=== PATIENT | female | born 1980 | race African-American/Black ===

== ENCOUNTER 2017-11-03 13:26 | Emergency (ER) | payer MEDICAID ==
[~2017-11-03] VITALS: Ht 182.9 cm; Wt 128.8 kg
[~2017-11-03 13:26] MED LIST: ALBUTEROL SULF8.5 GM INH; AUGMENTIN 875-1 EAC1 ORAL; AZITHROMYCIN250 MG ORAL; CIPRODEX OTIC7.5 M1 RIGHT EAR; IBUPROFEN800 MG ORAL; MEDROL DOSEPAK4 MG ORAL; PERCOCET 5-3251 EACH ORAL; PREDNISONE50 MG ORAL; PROMETHAZINE-C118 M1 ORAL; PROMETHAZINE-D118 ML ORAL; SINUS 12 HOUR120 MG PO
[2017-11-03] MEDS ORDERED: Ipratropium 0.02% Inh Soln 2.5ml UD HHN ONE (13:45)
[2017-11-03] MEDS: Albuterol ud Inhalation HHN SCH ×2 (14:34→14:35)
--- NOTE | 2017-11-03 14:41 | Emergency Room Report ---
History of Present Illness General Chief Complaint: Upper Respiratory Illness Present Illness HPI 37 YO presents to the ED c/o cough and moderate wheezing x 2 days, Pt. has a hx of asthma, and inhaler treatments at home are not helping. Patient denies fevers , chills she reports increased mucus production, nasal congestion and runny nose. Both Children are ill contacts. Denies high fevers, lethargy, neck stiffness, irritability, dehydration, N/V/D. Patient has a history of right- sided neck mass that has been evaluated and is benign. Patient denies sore throat. Denies Cp, Palpitations, LOC, AMS, seizures, paresthesias, or changes in Hearing or vision, no Sudden severe RODRIGUEZ Allergies: Coded Allergies: HYDROCODONE (Verified Allergy, Mild, 06/11/14) Patient stated "I get nauseated". ACETAMINOPHEN (Verified Allergy, Unknown, Nausea, 06/11/14) Patient denied acetaminophen allergic reaction Patient History Past Medical History: see triage record, asthma Past Surgical History: none Pertinent Family History: none Now: No Immunizations: UTD Reviewed Nursing Documentation: PMH: Agreed, PSxH: Agreed Nursing Documentation-PMH Hx Cardiac Problems: No Hx Asthma: Yes Hx Cancer: No - biopsy right neck mass 5 years ago benign Hx Gastrointestinal Problems: Yes - Nausea/vomiting/gall stones Hx Neurological Problems: No Review of Systems All Other Systems: negative except mentioned in HPI Physical Exam Vital Signs Date Time Temp Pulse Resp B/P (MAP) Pulse Ox O2 Delivery O2 Flow Rate FiO2 11/03/17 13:27 98.2 107 20 137/83 99 Room Air Sp02 EP Interpretation: reviewed, normal General Appearance: alert, GCS 15, non-toxic, mild distress Head: normocephalic, atraumatic Eyes: bilateral eye normal inspection, bilateral eye PERRL ENT: hearing grossly normal, normal voice, other Neck: full range of motion, no meningismus, no bony tend, other - right sided mass/goiter, no stridor Respiratory: rhonchi, speaking full sentences, wheezing, expiration, inspiration Cardiovascular #1: regular rate, rhythm, no edema Rectal: deferred Genitourinary: normal inspection Musculoskeletal: back normal, gait/station normal, normal range of motion, non- tender Neurologic: alert, oriented x3, responsive, motor strength/tone normal, sensory intact, speech normal, grossly normal Psychiatric: judgement/insight normal Skin: normal color, no rash, warm/dry, well hydrated Lymphatic: no adenopathy Medical Decision Making PA Attestation Dr. Lowry is my supervising Physician whom patient management has been discussed with. Diagnostic Impression: Primary Impression: Acute bronchitis with asthma with acute exacerbation ER Course 37 YO presents to the ED c/o cough and moderate wheezing x 2 days, Pt. has a hx of asthma, and inhaler treatments at home are not helping. Patient denies fevers , chills she reports increased mucus production, nasal congestion and runny nose. Both Children are ill contacts. Denies high fevers, lethargy, neck stiffness, irritability, dehydration, N/V/D. Patient has a history of right- sided neck mass that has been evaluated and is benign. Patient denies sore throat. Denies Cp, Palpitations, LOC, AMS, seizures, paresthesias, or changes in Hearing or vision, no Sudden severe RODRIGUEZ Ddx considered but are not limited to asthma exacerbation, CHF, URI, pneumonia, PE, strep pharyngitis, meningitis. Vital signs: Pt. is afebrile, VS are WNL H&PE are most consistent with URI, asthma exacerbation in the presence of acute URI- viral ORDERS: none required at this time, the diagnosis is clinical ED INTERVENTIONS: -DuoNebs- nebulized treatment. -prednisone 60mg PO - re-examination post nebulized treatment lungs are CTA bilaterally. DISCHARGE: At this time pt. is stable for d/c to home. Will provide printed patient care instructions, and any necessary prescriptions. Care plan and follow up instructions have been discussed with the patient prior to discharge. Chest X-Ray Diagnostic Results Chest X-Ray Diagnostic Results : Chest X-Ray Ordered: Yes # of Views/Limited/Complete: 1 View Indication: Shortness of Breath EP Interpretation: Yes PA Xray: Interpretation reviewed, by supervising MD, and agrees with findings. Interpretation: no consolidation, no effusion, no pneumothorax, no acute cardiopulmonary disease Impression: No acute disease Electronically Signed by: Altagracia Rain PA-C Last Vital Signs Date Time Temp Pulse Resp B/P (MAP) Pulse Ox O2 Delivery O2 Flow Rate FiO2 11/03/17 13:39 107 24 Room Air 11/03/17 13:27 98.2 137/83 99 Disposition: HOME, SELF-CARE Condition: Stable Scripts Prednisone* (PREDNISONE*) 20 Mg Tablet 40 MG ORAL DAILY for 5 Days, #10 TAB Prov: Altagracia Rain 11/03/17 Albuterol Sulfate* (ALBUTEROL SULFATE MDI*) 8.5 Gm Hfa.aer.ad 2 PUFF INH Q4H, #1 INH 2 Refills Prov: Altagracia Rain 11/03/17 Albuterol Sulfate* (ALBUTEROL SULFATE HHN*) 2.5 Mg/3 Ml Vial.neb 3 ML INH Q4H Y for Shortness of Breath, #30 EA Prov: Altagracia Rain 11/03/17 Guaifenesin (Guaifenesin) 1,200 Mg Tab.er.12h 1200 MG PO BID, #20 TAB Prov: Altagracia Rain 11/03/17 Codeine/Promethazine Hcl* (PROMETHAZINE-CODEINE SYRUP*) 118 Ml Syrup 5 ML ORAL Q6H Y for For Cough, #118 ML 0 Refills Prov: Altagracia Rain 11/03/17 Referrals: NOT CHOSEN [facility]/,REFERRING (PCP) Departure Forms: Return to Work Return to Work Date: Nov 04, 2017 Work Restrictions: None Return to Full Activity: Nov 04, 2017 Patient Instructions: Acute Bronchitis, Asthma, Acute Bronchospasm Additional Instructions: Take medications as directed. Follow up with a Primary Care Provider in 3-5 days, even if your symptoms have resolved. --Please review list of primary care clinics, if you do not already have a primary care provider Return sooner to ED if new symptoms occur, or current symptoms become worse. Do not drink alcohol, drive, or operate heavy machinery while taking cough syrup as this may cause drowsiness. - Please note that this Emergency Department Report was dictated using [employer] home healthcare technology software, occasionally this can lead to erroneous entry secondary to interpretation by the dictation equipment. Altagracia Rain Nov 03, 2017 14:41
--- NOTE | 2017-11-03 14:43 | Diagnostic Imaging Report ---
Indication: Cough Technique: XRAY Chest 1v Comparison: None Findings: Heart size and mediastinal contours are within normal limits given technique. There is no focal consolidation, pneumothorax or pleural effusion. Osseous structures demonstrate no acute abnormality. Impression: No radiographic evidence of acute cardiopulmonary disease. Specifically, no focal airspace consolidation.
[2017-11-03] MEDS ORDERED: PROMETHAZINE-C118 M1 ORAL (14:44)
[2017-11-03] MEDS ORDERED: GUAIFENESIN1200 MG PO (14:44)
[2017-11-03] MEDS ORDERED: PREDNISONE20 MG ORAL (14:44)
[2017-11-03] MEDS ORDERED: ALBUTEROL SULF8.5 GM INH (14:44)
[2017-11-03] MEDS ORDERED: ALBUTEROL2.5 MG/3 M INH (14:44)
[2017-11-03 15:09] VITALS: BP 129/81
[2017-11-03 15:14] VITALS: BP 129/81
== END 2017-11-03 15:14 | disposition home or self-care (01) ==
LOC: EMR 13:50
DX: J20.9 Acute bronchitis, unspecified (principal); J45.901 Unspecified asthma with (acute) exacerbation; Z88.6 Allergy status to analgesic agent
CPT/HCPCS: 71045; 94640; 94664; 99284; J7512

== ENCOUNTER 2018-12-02 23:29 | Emergency (ER) | payer MEDICAID ==
[~2018-12-02] VITALS: Ht 182.9 cm; Wt 127.0 kg
[~2018-12-02 23:29] MED LIST changes: +ALBUTEROL2.5 MG/3 M INH; +GUAIFENESIN1200 MG PO; +PREDNISONE20 MG ORAL
--- NOTE | 2018-12-02 23:40 | NUR ---
ED Nurse Note: RECIEVED PT ON [facility] AWAKE, ALERT AND ORIENTED X 4, PT FROM HOME WITH C/O COUGH AND CONGESTION WITH WHEEZINF FOR PAST 4 DAYS, PT HAS GOITER AND C/O PAIN 9/10 TO RIGHT NECK WHICH IS VERY LARGE IN SIZE, PT DENIES CP, DIARRHEA OR VOMITING, PT ASSISTED TO GOWNING, URINE SAMPLE AND CARDIAC MONITORING, WILL RESUME CARE ORDERED BY MD.
[2018-12-03 00:30] VITALS: BP 113/83
--- NOTE | 2018-12-03 00:44 | NUR ---
ED Nurse Note: PT CONTINUES TO REST IN BED QUIETLY, AWAKE AND ALERT, PT C/O PAIN INCREASING, PT WAITING TO BE SEEN BY MD, INFORMED MD OF PT PAIN LEVEL.
--- NOTE | 2018-12-03 00:59 | Emergency Room Report ---
History of Present Illness General Chief Complaint: Upper Respiratory Illness Source: Patient Present Illness HPI Patient presents with upper respiratory symptoms for one week. She also has right ear pain. She has had mild fevers. There is no vomiting or diarrhea. She has some chest pain and has a history of asthma. She took a nebulized treatment yesterday and she felt it made her worse. She denies dysuria. Ear pain is rated 4/10 and radiates somewhat up to her head. Aching. She is a sore throat. There is no productive cough. No leg pain or edema. Last menstrual period was November 11 and normal. Patient has a goiter. It's worse on the right-hand side. This been evaluated with biopsy and ultrasound 5 years ago is not on medication. Partial hearing loss left ear. History of gallstones. She denies abdominal pain at this time. Allergies: Coded Allergies: HYDROCODONE (Verified Allergy, Mild, 06/11/14) Patient stated "I get nauseated". ACETAMINOPHEN (Verified Allergy, Unknown, Nausea, 06/11/14) Patient denied acetaminophen allergic reaction Patient History Past Medical History: see triage record Social History: Denies: smoking Social History Narrative Caregiver Last Menstrual Period: 11/11/2018 Now: No Reviewed Nursing Documentation: PMH: Agreed; PSxH: Agreed Nursing Documentation-PMH Past Medical History: No History, Except For Hx Cardiac Problems: No Hx Asthma: Yes Hx Cancer: No - biopsy right neck mass 5 years ago benign Hx Gastrointestinal Problems: Yes - Nausea/vomiting/gall stones Hx Neurological Problems: No Review of Systems All Other Systems: negative except mentioned in HPI Physical Exam Vital Signs Date Time Temp Pulse Resp B/P (MAP) Pulse Ox O2 Delivery O2 Flow Rate FiO2 12/02/18 23:34 97.9 103 26 138/83 96 Room Air Sp02 EP Interpretation: reviewed, normal General Appearance: well appearing, no apparent distress, GCS 15 Head: normocephalic, atraumatic Eyes: bilateral eye normal inspection, bilateral eye PERRL ENT: moist mucus membranes, pharyngeal erythema, other - R TM with erythema Neck: full range of motion, thyromegaly - Very large goiter extending to the right side of her neck Respiratory: wheezing, expiration Cardiovascular #1: regular rate, rhythm Cardiovascular #2: 2+ radial (R) Gastrointestinal: normal inspection, normal bowel sounds, non tender, no mass, non-distended, overweight Genitourinary: no CVA tenderness Musculoskeletal: back normal, gait/station normal, normal range of motion, no calf tenderness Neurologic: alert, oriented x3, grossly normal Psychiatric: mood/affect normal Skin: normal inspection, warm/dry Medical Decision Making Diagnostic Impression: Primary Impression: Otitis media Qualified Codes: H66.001 - Acute suppurative otitis media without spontaneous rupture of ear drum, right ear Additional Impressions: Asthma exacerbation Qualified Codes: J45.21 - Mild intermittent asthma with (acute) exacerbation Goiter UTI (urinary tract infection) Qualified Codes: N30.00 - Acute cystitis without hematuria ER Course Patient presents with upper respiratory symptoms and ear pain. Differential includes otitis media, bronchitis, asthma exacerbation, influenza amongst others. She received a flu shot and influenza is less likely however a flu swab is obtained. She will be evaluated with urinalysis. Based on her exam chest x-ray and lab evaluation not indicated. She will be treated with breathing treatments and prednisone. Also antibiotics are indicated for the otitis media. Influenza swab negative. Urinalysis reveals pyuria. Patient improved with breathing treatments. Azithromycin was given for the otitis media. However the patient is given Levaquin to cover both urinary tract infection and otitis media. Treatment plan was discussed with the patient. She is stable for outpatient observation and treatment Laboratory Tests Test 12/03/18 00:30 Urine Color Yellow Urine Appearance Slightly cloudy Urine pH 5 (4.5-8.0) Urine Specific [place] 1.020 (1.005-1.035) Urine Protein 1+ (NEGATIVE) H Urine Glucose (UA) Negative (NEGATIVE) Urine Ketones Negative (NEGATIVE) Urine Blood 1+ (NEGATIVE) H Urine Nitrite Negative (NEGATIVE) Urine Bilirubin Negative (NEGATIVE) Urine Urobilinogen 1 MG/DL (0.0-1.0) H Urine Leukocyte Esterase 3+ (NEGATIVE) H Urine RBC 20-30 /HPF (0 - 2) H Urine WBC 10-15 /HPF (0 - 2) H Urine Squamous Epithelial Cells Moderate /LPF (NONE/OCC) H Urine Bacteria Many /HPF (NONE) H Urine HCG, Qualitative Negative (NEGATIVE) Microbiology Date/Time Source Procedure Growth Status 12/03/18 01:00 Nasal Nares Influenza Types A,B Antigen (IJEOMA) - Final Complete Rhythm Strip Diag. Results EP Interpretation: yes Rhythm: NSR, no PVC's, no ectopy Last Vital Signs Date Time Temp Pulse Resp B/P (MAP) Pulse Ox O2 Delivery O2 Flow Rate FiO2 12/03/18 03:58 98.4 90 18 126/69 100 Room Air 21 Status: improved Disposition: HOME, SELF-CARE Condition: Improved Scripts Guaifenesin/Codeine Phos* (ROBITUSSIN AC*) 118 Ml Liquid 5 ML ORAL Q6H PRN for For Cough, #90 ML 0 Refills Prov: Sae Zarate MD 12/03/18 Prednisone* (PREDNISONE*) 20 Mg Tablet 40 MG ORAL DAILY, #10 TAB Prov: Sae Zarate MD 12/03/18 Levofloxacin* (LEVAQUIN*) 500 Mg Tablet 500 MG ORAL DAILY, #7 TAB Prov: Sae Zarate MD 12/03/18 Referrals: NOT CHOSEN SHAHID/,REFERRING (PCP) Sae Zarate MD Dec 03, 2018 00:59
[2018-12-03] MEDS ORDERED: Ipratropium 0.02% Inh Soln 2.5ml UD HHN ONE (01:00)
[2018-12-03] MEDS ORDERED: guaiFENesin w/Codeine 5ml Liq ud ORAL PRN (01:00)
[2018-12-03] MEDS ORDERED: Azithromycin 250mg tab PO ONE (01:00)
[2018-12-03] MEDS ORDERED: Albuterol ud Inhalation HHN ONE (01:00)
[2018-12-03 01:38] LABS: APPEARANCE,URINE SLIGHTLY CLOUDY; BILIRUBIN, URINE NEGATIVE (NEGATIVE); GLUCOSE, URINE (UA) NEGATIVE (NEGATIVE); KETONES,URINE NEGATIVE (NEGATIVE); LEUKOCYTE ESTERASE ,URINE 3+ (NEGATIVE); NITRITE,URINE NEGATIVE (NEGATIVE); PH,URINE 5 (4.5-8.0); PROTEIN,URINE 1+ (NEGATIVE); UROBILINOGEN,URINE 1 MG/DL (0.0-1.0)
[2018-12-03 01:40] LABS: COLOR,URINE YELLOW
[2018-12-03 02:30] VITALS: BP 121/77
[2018-12-03] MEDS ORDERED: LEVAQUIN500 MG ORAL (03:10)
[2018-12-03] MEDS ORDERED: GUAIFENESIN-CO118 M1 ORAL (03:10)
[2018-12-03] MEDS ORDERED: PREDNISONE20 MG ORAL (03:10)
[2018-12-03] MEDS ORDERED: Levofloxacin 500mg tab ORAL ONE (03:15)
[2018-12-03 03:30] VITALS: BP 126/69
--- NOTE | 2018-12-03 03:35 | NUR ---
ED Nurse Note: PT GIVEN ORAL ANTIBIOTIC, NO S/S OF ADVERSE REACTION NOTED, PT TOLERATED WELL, BEING D/C TO HOME, GIVEN F/U INFO,A FTER CARE INSTRUCTIONS AND RE-VERBALIZES PROPER MEDICATION ADMINISTRATION, PT IS AMBULATORY, NO CP, ARMBAND REMOVED, NAD NOTED DURING D/C TO HOME.
[2018-12-03 03:58] VITALS: BP 126/69
== END 2018-12-03 03:59 | disposition home or self-care (01) ==
LOC: EMR 23:50
DX: H66.91 Otitis media, unspecified, right ear (principal); J45.901 Unspecified asthma with (acute) exacerbation; N39.0 Urinary tract infection, site not specified; E04.9 Nontoxic goiter, unspecified; Z88.6 Allergy status to analgesic agent; Z88.5 Allergy status to narcotic agent
CPT/HCPCS: 81003; 81025; 86710; 87086; 94640; 94664; 99284; J7512; Q0144